=== PATIENT | female | born 1940 | race Caucasian/White ===

== ENCOUNTER 2017-12-03 09:52 | Emergency (ER) | payer MEDICARE, BC ==
[~2017-12-03] VITALS: Ht 152.4 cm; Wt 66.0 kg
[~2017-12-03 09:52] MED LIST: ALENDRONATE70 MG PO; CALCIUM/D250 MG PO; ESTRACE VAG0.1 MG/GM VA; ETODOLAC ER500 MG OR; LIPITOR10 MG PO; MULTIVITAM10 OR; TRIAMCINOLON0.11 EX
[2017-12-03] MEDS ORDERED: LORTAB 5/3255 MG PO (11:22)
[2017-12-03] MEDS ORDERED: FLEXERIL PO (11:22)
[2017-12-03] MEDS ORDERED: NAPROXEN DR500 MG PO (11:22)
[2017-12-03] MEDS ORDERED: PREDNISONE50 MG PO (12:00)
[2017-12-03 12:03] VITALS: BP 170/79
== END 2017-12-03 12:03 | disposition home or self-care (01) ==
LOC: ED 09:52
DX: M62.830 Muscle spasm of back (principal); M34.9 Systemic sclerosis, unspecified

== ENCOUNTER 2020-01-16 20:53 | Observation (INO) | payer MEDICARE, BC ==
[~2020-01-16] VITALS: Ht 152.4 cm; Wt 62.0 kg
[~2020-01-16 20:53] MED LIST changes: +FLEXERIL PO; +LORTAB 5/3255 MG PO; +NAPROXEN DR500 MG PO; +PREDNISONE50 MG PO
--- NOTE | 2020-01-16 21:06 | NUR ---
TO ROOM 10 VIA WC IN STABLE CONDITION.
--- NOTE | 2020-01-16 21:07 | NUR ---
PT. STATES SHE HAD FOOT SURGERY AN 01/11/20 AND TODAY STARTED WITH LLE CALF PAIN.
[2020-01-16] MEDS ORDERED: SINGULAIR10 MG PO (21:08)
[2020-01-16] MEDS ORDERED: TIZANIDINE2 MG PO (21:08)
[2020-01-16] MEDS ORDERED: PRILOSEC20 MG/CAP PO (21:09)
[2020-01-16] MEDS ORDERED: [UNRECOGNIZED DRUG - OTHER] PO (21:10)
[2020-01-16] MEDS ORDERED: BIOTIN5000 MC2 PO (21:12)
--- NOTE | 2020-01-16 21:54 | NUR ---
PO PAIN MED GIVEN PER MD ORDER.
--- NOTE | 2020-01-16 22:54 | NUR ---
RESTING ON STRETCHER, NO C/O AT THIS TIME. DRESSING TO LEFT FOOT INTACT.
[2020-01-16 23:34] LABS: HEMATOCRIT 39.9 % (37.0-47.0); HEMOGLOBIN 12.9 g/dl (12.0-16.0); IMMATURE GRANULOCYTES 0.4 % (0.0-5.0); MEAN CELL VOLUME 86.6 fL CALC (80.0-100.0); MEAN CORPUSCULAR HGB CONC 32.3 g/dL CAL (32.0-36.0); NEUT# 6.76 thou/uL (2.00-7.15); RED BLOOD COUNT 4.61 mill/uL (4.20-5.60); RED CELL DISTRI WIDTH 14.6 % (11.5-15.5)
[2020-01-16 23:41] LABS: ALKALINE PHOSPHATASE 48 u/l (38-126); ANION GAP 10 (6-22 (CALC)); BILIRUBIN, TOTAL 0.5 mg/dL (0.0-1.4); BUN 15 mg/dL (8-23); BUN/CREATININE RATIO 19 (12-20 (CALC)); CARBON DIOXIDE 29 mmol/l (22-30); CHLORIDE 100 mmol/l (95-108); CREATININE 0.8 mg/dL (0.5-1.0); GFR > 60 ML/MIN (>=60 (CALC)); GFR FOR AFR.AMER. > 60 ML/MIN (>=60 (CALC)); POTASSIUM 3.9 mmol/l (3.5-5.1); SGOT/AST 21 u/l (9-36); SODIUM 135 mmol/l (137-146)
[2020-01-16 23:54] LABS: INTERNATIONAL NORMALIZED RATIO 0.9 RATIO (0.7-1.3); PROTHROMBIN TIME 9.9 SECONDS (9.0-12.5)
--- NOTE | 2020-01-16 23:54 | NUR ---
MD IN ROOM TO DISCUSS CLINICAL FINDINGS WITH PT. AND TO ALSO MAKE HER AWARE OF DISCHARGE, VERBALIZED UNDERSTANDING.
--- NOTE | 2020-01-17 00:18 | NUR ---
SQ LOVENOX GIVEN PER MD ORDER.
--- NOTE | 2020-01-17 01:04 | NUR ---
Admission Note Report Given to: FAIZAN MILLER Transported by: Wheelchair X Stretcher Transported with: X Nurse Transporter X Patent IV O2 X Supervisor Bleach [employer] Location: ICU X MS2
--- NOTE | 2020-01-17 01:22 | NUR ---
PT. TAKEN TO [facility] VIA W/C, NO C/O.
[2020-01-17 05:11] VITALS: BP 155/77
--- NOTE | 2020-01-17 07:30 | NUR ---
RECIEVED REPORT FROM PAUL TERRELL. PT RESTING IN LOW FOWLERS POSITION UPON ENTERING ROOM. INTRODUCED SELF TO PT AND DISCUSSED POC. RESPIRATIONS ARE EVEN AND UNLABORED WITH NO SIGNS OF DISTRESS. PT DENIES ANY PAIN OR DISCOMFORTS AT THIS TIME. ALL SAFTEY PRECAUTIONS IN PLACE WITH CALL LIGHT IN REACH. WILL CONTIUE TO MONITOR
[2020-01-17 09:14] VITALS: BP 113/74
--- NOTE | 2020-01-17 09:14 | NUR ---
ASSESSMENT AND VITALS COMPLETED AT THIS TIME. BP 113/74, HR 74, O2 98% ON ROOM AIR. RESPIRATIONS ARE EVEN AND UNLABORED WITH NO SIGNS OF DISTRESS.LUNG SOUNDS ARE CLEAR. HEART RHYTHM IS NORMAL. BOWEL SOUNDS ARE ACTIVE IN ALL QUADRANTS, LAST REPORTED BM 01/17/20. RADIAL AND RIGHT PEDAL PULSES STRONG WITH NORMAL CAPILLARY REFILL. 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 DRESSING IS CDI AT THIS TIME. PT PRESENTS WITH TRACE EDEMA IN LEFT FOOT. PT DENIES ANY PAIN OR DISCOMFORTS AT THIS TIME. ALL SAFTEY PRECAUTIONS IN PLACE WITH CALL LIGHT IN REACH. WILL CONTINUE TO MONITOR
[2020-01-17 10:49] VITALS: BP 129/76
--- NOTE | 2020-01-17 12:18 | NUR ---
IV REMOVED WITH CATHATER STILL INTACT. PT TOLERTAED WELL.EDUCATED PT ON DISCHARGE INSTRUCTIONS AND ELIQUIS , PT VERBALIZED UNDERSTANDING. AWAITING FOR TRANSPORTATION AT THIS TIME. ALL SAFETY PRECAUTIONS REAMIN IN PLACE. WILL CONTINUE TO MONITOR
--- NOTE | 2020-01-17 12:31 | NUR ---
Discharge instructions given. Patient verbalizes understanding of same. Discharged in stable condition via Wheelchair to Home with family. All belongings sent with pt. PT LEFT IN STABLE CONDITION VIA WHEELCHAIR ACCOMPAINED BY VASHTI GALLARDO. PT DSICHARGED WITH DISCHARGE INSTRUCTIONS, ELIQUIS AND ALL BELONGINGS.
== END 2020-01-17 12:31 | disposition home health service (06) ==
LOC: ED 20:53 → ED-I 22:55 → ED 23:52 → MS2 23:53
PROVIDERS: Emergency Medicine; ADMIT Internal Medicine; ATTEND Internal Medicine
DX: I82.452 Acute embolism and thrombosis of left peroneal vein (principal); M34.9 Systemic sclerosis, unspecified; Z98.890 Other specified postprocedural states; Z11.59 Encounter for screening for other viral diseases
CPT/HCPCS: G0378; J1650

== ENCOUNTER 2024-10-18 05:08 | Emergency (ER) | payer MEDICARE, BC ==
[~2024-10-18] VITALS: Ht 152.4 cm; Wt 63.0 kg
[2024-10-18] VITALS (7 sets, daily range): BP systolic 175–194; BP diastolic 87–100
[~2024-10-18 05:08] MED LIST changes: +BIOTIN5000 MC2 PO; +PRILOSEC20 MG/CAP PO; +SINGULAIR10 MG PO; +TIZANIDINE2 MG PO; +[UNRECOGNIZED DRUG - OTHER] PO
[2024-10-18] MEDS ORDERED: KETOROLAC TROMETHAMINE 30 MG/ML SDV IV ONE (05:45)
[2024-10-18] MEDS ORDERED: Acetaminophen 300 MG/Codeine 30 MG/COMBO PO ONE (05:45)
[2024-10-18] MEDS ORDERED: methylPREDNISolone SODIUM SUCC 125 MG/2 ML SDV IV ONE (05:45)
[2024-10-18 06:07] LABS: BASO% 0.2 % (0-3); EOS% 1.2 % (0-8); HEMATOCRIT 42.8 % (37.0-47.0); IMMATURE GRANULOCYTES 0.8 % (0.0-5.0); LYMPH% 29.2 % (15-41); MEAN CELL VOLUME 84.9 fL CALC (80.0-100.0); MEAN CORPUSCULAR HGB 27.8 pG CALC (26.0-32.0); MEAN CORPUSCULAR HGB CONC 32.7 g/dL CAL (32.0-36.0); MONO% 7.1 % (2-13); NEUT# 6.89 thou/uL (2.00-7.15); NEUT% 61.5 % (42-76); RED BLOOD COUNT 5.04 mill/uL (4.20-5.60); RED CELL DISTRI WIDTH 14.4 % (11.5-15.5)
[2024-10-18 06:20] LABS: ALBUMIN 4.4 g/dL (3.2-5.0); CREATININE 0.7 mg/dL (0.5-1.0); POTASSIUM 3.6 mmol/l (3.5-5.1); TOTAL PROTEIN 7.7 g/dL (6.3-8.2)
[2024-10-18 06:29] LABS: BILIRUBIN, TOTAL 0.6 mg/dL (0.02-1.3)
== END 2024-10-18 08:11 | disposition home or self-care (01) ==
LOC: ED 05:08
PROVIDERS: Family Medicine
DX: M79.652 Pain in left thigh (principal); M48.061 Spinal stenosis, lumbar region without neurogenic claudication